=== PATIENT | male | born 1995 | race Caucasian/White ===

== ENCOUNTER 2016-03-01 22:00 | Emergency (ER) | payer BC, MEDICAID ==
[2016-03-01] MEDS ORDERED: ZIPRASIDONE 20 MG VIAL IM ONE (22:02)
[2016-03-01] MEDS ORDERED: NS 1,000 ML IV ONE (22:02)
[2016-03-01] MEDS ORDERED: WATER 10 ML ONE (22:04)
[2016-03-01 22:14] VITALS: BMI 23.6
--- NOTE | 2016-03-01 22:14 | EDPRACDOC ---
- General Information Stated Complaint: OVERDOSE Time Seen by Provider: 03/01/16 22:02 Home Medications: Home Medications Lisinopril [Zestril] 20 mg PO DAILY 06/17/13 Lorazepam [Ativan] 1 mg PO BID #30 tab 06/17/13 Allergies/Adverse Reactions: Allergies Allergy/AdvReac Type Severity Reaction Status Date / Time No Known Allergies Allergy Verified 06/17/13 18:03 - History of Present Illness Exact Onset of Symptoms: Unknown HPI: PT STATES HE TOOK ACID AND HAVING A BAD TRIP. HALLUCINATING. UNABLE TO OBTAIN HX AT THIS TIME. THREE [employer]ICE OFFIERS WITH PT HOLDING HIM DOWN WHILE GEODON IS ADMINISTERED. Duration: Since Onset Symptoms Currently: Reports: Still Present Altered Quality: Reports: Change in Behavior Altered Severity: Reports: Moderate Prehospital: Reports: Medical Transcription Radiology ED Past Medical History - History Reviewed Yes Nurses notes reviewed and agree except as marked - Patient Medical History Cardiac History: Reports: Hypertension EDM Review of Systems - Review of Systems ROS Unobtainable: Yes Review of systems cannot be obtained due to the patient's medical condition - Physical Exam Constitutional: Uncooperative Oriented to: Unable to Test Last recorded Vital Signs: Oxygen Pulse Oxygen Saturation O2 Device Oxygen Flow Rate Fraction of Inspired Oxygen ( FIO2) - HEENT Head: Normal ( normocephalic) Eye Exam: Normal (PERRL, EOMI, Sclera white) Oropharynx: Normal (Pharynx:Moist without exudate,Gums-no swelling) Tympanic Membrane: Normal ENT EAC: Normal TMJ: Normal Nose: No Symptoms Reported (septum midline) Neck: Normal (FROM, trachea at midline) - Respiratory/Cardiovascular Respiratory: Normal - CTA (BBS clear to auscultation without adventitious sounds ) Cardiovascular: Normal (RRR without murmur, gallop or rub) - GI Auscultation: Normal (NABS) Palpation: Normal (Soft,No rebound or guarding, non distended) Tenderness: Non tender Garner's Sign: Negative - Musculoskeletal Back: Normal (Non-Tender) Extremities: Normal (Normal tone, Pulses 2+ No cyanosis or edema, FROM) - Integumentary Skin: Normal, Warm, Dry Lymphatics: Normal (no adenopathy) - Neurologic Memory Impaired: Unable to Test Motor Function: Normal (Normal tone, Pulses 2+ No cyanosis or edema, FROM) Cranial Nerve: Normal (CN II-X11 intact sensation, strength 5/5) Cerebellar: Normal Mood Description: Anxious, Agitated, Combative, Uncooperative Perception: Auditory Hallucinations - Results 03/01/16 22:45 03/01/16 22:45 - Additional Information Additional Information: RECHECK; MUCH BETTER; LUCID AND ANSWERING QUESTIONS. NO COMPLAINTS. BP UP NOW WITH IVF AMBULATES TO AND FROM BATHROOM. NO SXS CURRENTLY. Decision Time to Discharge: 03:17 - Departure Yes I personally saw and evaluated the patient. Disposition: Home Condition: Good Final Diagnosis: DRUG INGESTION Instructions: Accidental Overdose Education/Counseling Given To: Patient Education/Counseling Given Regarding: Diagnosis, Treatment, Prognosis Referrals: None,No Provider [Primary Care Provider] - One Week Lester Majano MD [Staff Physician] - One Week
[2016-03-01 23:06] LABS: ALL NEG? NO
[2016-03-01 23:17] LABS: MPV 9.2 fL (7.4-10.4)
[2016-03-01 23:18] LABS: MDMA* NEG (NEGATIVE); METHAMPHETAMINES NEG (NEGATIVE); OXYCODONE NEG (NEGATIVE)
[2016-03-01 23:26] LABS: BLOOD UREA NITROGEN 11 MG/DL (9-20); CALCIUM 8.9 MG/DL (8.4-10.2); CALCULATED OSMOLALITY 271 MOs/Kg (270-290); CHLORIDE 100 mEq/L (98-107); GLUCOSE 177 MG/DL (70-99); SODIUM LEVEL 139 mEq/L (137-146); TOTAL PROTEIN 7.4 G/DL (6.3-8.2)
[2016-03-01 23:29] LABS: PARTIAL THROMB. TIME 22.7 SEC (22-35); PT-INR 1.2
[2016-03-02] MEDS ORDERED: NS 2,000 ML IV ONE (00:04)
[2016-03-02 00:41] LABS: SEG NEUTROPHIL 91 % (45-76); TOTAL CELL COUNT 100
[2016-03-02 04:00] VITALS: BP 105/64; PULSE 99
== END 2016-03-02 04:00 | disposition home or self-care (01) ==
LOC: ED 22:00
DX: T50.905A Adverse effect of unspecified drugs, medicaments and biological substances, initial encounter (principal)
CPT/HCPCS: 36415; 80053; 80307; 85007; 85027; 85610; 85730; 96360; 96361; 96372; 99285; J3486